=== PATIENT | male | born 1995 | race Caucasian/White ===

== ENCOUNTER 2022-08-22 20:28 | Emergency (ER) | payer OTHER ==
[2022-08-22 22:17] LABS: Bilirubin Neg (Negative); Blood, Urine Negative (Negative); Clarity Clear (Clear); Glucose, Urine (Dipstick) Normal (Negative); Ketone, Urine Negative (Negative); Leukocyte 25 (Negative); Nitrite Negative (Negative); Protein, Urine (Dipstick) 15 mg/dl (Neg-Trace); Urobilinogen Normal mg/dL (Less than 2)
[2022-08-22 22:25] LABS: Bacteria/HPF None Seen HPF (None Seen); Mucous/LPF Rare LPF (<2+); RBC/HPF None Seen HPF (0-3); Squamous Epithelial 0-3 HPF (0-3); WBC/HPF 0-3 HPF (0-3)
== END 2022-08-22 22:38 | disposition home or self-care (01) ==
LOC: CSHERS 20:28
DX: N39.0 Urinary tract infection, site not specified (principal)
CPT/HCPCS: 81003; 81015; 87086; 99283

== ENCOUNTER 2023-11-15 14:09 | Emergency (ER) | payer OTHER | END 2023-11-15 15:39 | disposition home or self-care (01) | LOC: CSHERS 14:09 | DX: M54.50 Low back pain, unspecified (principal) | CPT/HCPCS: 72050; 72110; 99284 ==